=== PATIENT | female | born 1985 | race Caucasian/White ===

== ENCOUNTER 2020-03-29 13:14 | Emergency (ER) | payer OTHER ==
[~2020-03-29] VITALS: Ht 160 cm; Wt 120.7 kg
[~2020-03-29 13:14] MED LIST: LIDOcaine 1% W/epiNEPHrine 1:200,000 10ml vial ONE
--- NOTE | 2020-03-29 13:34 | NUR ---
pt is 34yo female c/o left middle finger deformity, slipped and fell at work, xray, has been evaluated by provider, resting quietly on bed
[2020-03-29 14:27] VITALS: BP 149/103
== END 2020-03-29 14:28 | disposition home or self-care (01) ==
LOC: ER 13:17
DX: S63.253A Unspecified dislocation of left middle finger, initial encounter (principal); Z88.5 Allergy status to narcotic agent; W19.XXXA Unspecified fall, initial encounter; Y93.89 Activity, other specified; Y92.89 Other specified places as the place of occurrence of the external cause; Y99.8 Other external cause status
CPT/HCPCS: 26770; 27250; 73140; 99152; 99153; 99284; 99285